=== PATIENT | female | born 1990 | race Caucasian/White ===

== ENCOUNTER 2019-08-14 06:38 | Inpatient (IN) | payer BC ==
[2019-08-14] MEDS ORDERED: Lidocaine 1% 50 ML MDV INJECT ONE (07:28)
[2019-08-14] MEDS ORDERED: Sodium Chloride 0.9% 10 ML Syringe FLUSH PRN (07:28)
[2019-08-14] MEDS ORDERED: Calcium Carbonate 500 MG Tab.Chew PO PRN (07:28)
[2019-08-14] MEDS ORDERED: Nalbuphine 10 MG/ML Syringe IVPUSH PRN (07:28)
[2019-08-14] MEDS ORDERED: Ondansetron 4 MG/2 ML SDV IVPUSH PRN (07:28)
[2019-08-14] MEDS ORDERED: Oxytocin/Lactated Ringers 10 UNIT/1,000 ML BAG IV SCH ×2 (07:30)
[2019-08-14] MEDS ORDERED: ePHEDrine 50 MG/ML SDV IVPUSH PRN (07:34)
[2019-08-14] MEDS ORDERED: fentaNYL 100 MCG/2 ML SDV EPIDUR PRN (07:34)
[2019-08-14] MEDS ORDERED: diphenhydrAMINE 50 MG/ML SDV IVPUSH PRN (07:34)
[2019-08-14] MEDS ORDERED: Bupivacaine/fentaNYL/NS 100 ML Bag EPIDUR PRN (07:34)
--- NOTE | 2019-08-14 09:28 | PCM.LDHP ---
L&D History of Present Illness - General Date of Service: 08/14/19 Admit Problem/Dx: Patient Status Order with Admit Dx/Problem 08/14/19 06:52 Patient Status [ADT] Routine 08/14/19 07:28 Patient Status [ADT] Routine Admission Diagnosis/Problem Admission Diagnosis/Problem Active labor 08/14/19 10:24 Tres a 28-year-old 1 para 0 who was admitted at 40-4/7 weeks gestational age with an BETSY of 08/10/2019 in active labor with progressive cervical dilation to 4 cm, 90% effaced, -3 station, anterior, very soft and cephalic presenting. Source of Information: Patient History Limitations: Reports: No Limitations - History of Present Illness Introduction:: Tres a 28-year-old 1 para 0 who was admitted at 40-4/7 weeks gestational age with an BETSY of 08/10/2019 in active labor with progressive cervical dilation to 4 cm, 90% effaced, -3 station, anterior, very soft and cephalic presenting.Began having labor pains on 08/13/2019. The progress through the night until the end of 08/14/2019. Membranes remained intact upon admission. She is reasonably cochlea. She reports good activity. 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 BETSY is set at 08/10/2019 placing her at 40-4/7 weeks gestational age. BETSY is determined by an early ultrasound done on 2018 and supported by a second ultrasound on 03/27/2019. Patient had menarche at age 13. Cycles every 28 days. Patient had an LMP of 11/11/2018. She denies any STDs or abnormal Pap smears. course. Patient was initially seen for care on 02/08/2019. She had regular care and was a centering patient. Her weight gain was from 136.4 pounds 167.6 pounds for a 31 pound weight gain. Her vital signs remained stable throughout the course. Her fundal height growth was appropriate. Patient is group B strep negative. She declined flu shot. She declined genetic evaluation. Inverted depression screening score on was 3/30. She has a left thyroid nodule. She plans to breast-feed. She would like to try natural childbirth but is okay with an epidural. Laboratory testing and : Blood is A+ with a negative and by screen. Hemoglobin first visit was 13.9 g/dL and platelets were 261,000. She is rubella immune. RPR is nonreactive. Urine culture was negative. Hepatitis B surface antigen and HIV assays were both negative. Chlamydia and gonorrhea assays were both negative. TSH on 02/08/2019 was 3.4-5 mU/L. Second trimester hemoglobin was 11.0 g/dL at which time she was started on ferrous sulfate 325 mg by mouth daily. Platelets at that time were 295,000. Diabetic screen was normal at 90. RPR on 05/15/2019 was nonreactive. Group B strep screen on 2019 was negative. Allergies: Negative. Medications: 1. vitamins 1 daily 2. Ferrous sulfate 325 mg by mouth daily. Past medical history: Unremarkable Past surgical history: Unremarkable Family history: Father with hypertension and high cholesterol history along with heart bypass surgery. Paternal grandmother with history of breast cancer. No other significant family history of cancer noted. No history of anesthesia or bleeding problems, blood clotting problems or related issues. Social history: Patient is . 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 Her is Tommy. She does not use any significant most alcohol, drugs or tobacco. Review of systems: In general patient has no complaints. She is josué and does report good activity. Skin: Negative Lungs: No infectious symptoms or shortness of breath Cardiovascular: No chest pain or exercise intolerance Breasts: Changes associated with .. GI: Negative : Body habitus changes associated with with increased fundal height. Musculoskeletal: Negative Neurological: Negative In general the patient is well-developed, well-nourished, pleasant female of stated age in no acute distress. Last evaluation on 08/08/2019 patient's blood pressure is 119/67. Weight was 167.6. heart rate was 151. Pre weight was 136.4 pounds. Height is 5 feet 4 inches. Prepregnancy body mass index is 22.3. Skin is warm dry without lesions. HEENT, neck and back within normal limits. Lungs are clear with good breath sounds in all lung oliveira. Cardiovascular exam shows regular and rhythm without murmurs. Abdomen is gravid with last fundal height in clinic at 39 cm with baby in vertex presentation.. Genital per her digital exam shows cervix as described above. Extremities and neurological exam are grossly within normal limits. - Related Data Allergies/Adverse Reactions: Allergies Allergy/AdvReac Type Severity Reaction Status Date / Time No Known Allergies Allergy Verified 08/13/19 10:51 Home Medications: Home Meds Mv-Mn/Iron/FA/Herbal/Digestive [ One Tablet] 1 tab PO DAILY 08/13/19 [ History] H&P Review of Systems - Review of Systems: Review Of Systems: See Below L&D Exam - Exam Exam: See Below - Vital Signs Weight: 74.843 kg - Patient Data Lab Results Last 24 hrs: Laboratory Results - last 24 hr 08/14/19 Range/Units 07:55 WBC 11.46 H (3.98-10.04) K/mm3 RBC 4.46 (3.98-5.22) M/mm3 Hgb 13.3 D (11.2-15.7) gm/dl Hct 40.0 (34.1-44.9) % MCV 89.7 (79.4-94.8) fl MCH 29.8 (25.6-32.2) pg MCHC 33.3 (32.2-35.5) g/dl RDW Std Deviation 42.5 (36.4-46.3) fL Plt Count 284 (182-369) K/mm3 MPV 10.3 (9.4-12.3) fl Neut % (Auto) 80.7 H (34.0-71.1) % Lymph % (Auto) 10.9 L (19.3-51.7) % Loup % (Auto) 7.7 (4.7-12.5) % Eos % (Auto) 0.3 L (0.7-5.8) Baso % (Auto) 0.1 (0.1-1.2) % Neut # (Auto) 9.26 H (1.56-6.13) K/mm3 Lymph # (Auto) 1.25 (1.18-3.74) K/mm3 Loup # (Auto) 0.88 H (0.24-0.36) K/mm3 Eos # (Auto) 0.03 L (0.04-0.36) K/mm3 Baso # (Auto) 0.01 (0.01-0.08) K/mm3 Result Diagrams: 08/14/19 07:55 Problem List Initiated/Reviewed/Updated: Yes Orders Last 24hrs: Active Orders 24 hr Category Date Time Status Patient Status [ADT] Routine ADT 08/14/19 07:28 Active Activity as Tolerated [RC] PFP Care 08/14/19 07:28 Active Communication Order [RC] ASDIRECTED Care 08/14/19 07:28 Active Communication Order [RC] ASDIRECTED Care 08/14/19 07:35 Active Cooling Warming Measures [RC] ASDIRECTED Care 08/14/19 07:35 Active Heart Tones [RC] ASDIRECTED Care 08/14/19 07:29 Active Notify Provider [RC] ASDIRECTED Care 08/14/19 07:35 Active Notify Provider [RC] PFP Care 08/14/19 07:28 Active Notify Provider [RC] PRN Care 08/14/19 07:28 Active Oxygen Therapy [RC] ASDIRECTED Care 08/14/19 07:35 Active Peripheral IV Care [RC] . DIRECTED Care 08/14/19 07:29 Active Pulse Oximetry [RC] ASDIRECTED Care 08/14/19 07:35 Active Pump Management, Intrathecal [RC] ASDIRECTED Care 08/14/19 07:29 Active Urinary Catheter Assessment [RC] ASDIRECTED Care 08/14/19 07:28 Active Vital Signs [RC] PER UNIT ROUTINE Care 08/14/19 06:52 Active Regular Diet [DIET] Diet 08/14/19 Breakfast Active BLOOD BANK HOLD SPECIMEN [BBK] Stat Lab 08/14/19 07:55 Received RAPID PLASMA REAGIN,RPR [CHEM] Stat Lab 08/14/19 07:55 Received Bupivacaine/fentaNYL/NS [fentaNYL/Bupivacaine/NS 2 MCG- Med 08/14/19 07:34 Active 0.125% 100 ML] 100 ml EPIDUR CONTINUOUS PRN Calcium Carbonate [Tums] Med 08/14/19 07:28 Active 1,000 mg PO Q2H PRN Lactated Ringers [Ringers, Lactated] 1,000 ml Med 08/14/19 07:30 Active IV ASDIRECTED Ondansetron [Zofran] Med 08/14/19 07:28 Active 4 mg IVPUSH Q4H PRN Oxytocin/Lactated Ringers [Pitocin in LR 10 Units/1,000 Med 08/14/19 07:30 Active ML] 10 unit in 1,000 ml IV .CONTINUOUS Oxytocin/Lactated Ringers [Pitocin in LR 10 Units/1,000 Med 08/14/19 07:30 Active ML] 10 unit in 1,000 ml IV TITRATE Sodium Chloride 0.9% [Saline Flush] Med 08/14/19 07:28 Active 10 ml FLUSH ASDIRECTED PRN diphenhydrAMINE [Benadryl] Med 08/14/19 07:34 Active 25 mg IVPUSH Q6H PRN ePHEDrine [ePHEDrine sulfate] Med 08/14/19 07:34 Active 5 mg IVPUSH ASDIRECTED PRN fentaNYL [Sublimaze] Med 08/14/19 07:34 Active 100 mcg EPIDUR Q3H PRN Electronic Heart Tones Ext w TOCO [WOMSER] Oth 08/14/19 07:28 Ordered Routine Electronic Heart Tones Internal [WOMSER] Per Unit Oth 08/14/19 07:28 Ordered Routine Peripheral IV Insertion Adult [OM.PC] Routine Oth 08/14/19 07:28 Ordered Resuscitation Status Routine Resus Stat 08/14/19 06:52 Ordered Medication Orders Calcium Carbonate/Glycine (Tums) 1,000 mg PO Q2H PRN PRN Reason: Indigestion Diphenhydramine HCl (Benadryl) 25 mg IVPUSH Q6H PRN PRN Reason: Itching Ephedrine Sulfate (Ephedrine Sulfate) 5 mg IVPUSH ASDIRECTED PRN PRN Reason: HYPOTENTSION Fentanyl (Sublimaze) 100 mcg EPIDUR Q3H PRN PRN Reason: Pain Fentanyl/Bupivacaine HCl (Fentanyl/Bupivacaine/Ns 2 Mcg-0.125% 100 Ml) 100 ml EPIDUR CONTINUOUS PRN PRN Reason: Pain Lactated Ringer's (Ringers, Lactated) 1,000 mls @ 100 mls/hr IV ASDIRECTED MJ Oxytocin/Lactated Ringer's (Pitocin In Lr 10 Units/1,000 Ml) 10 unit in 1,000 mls @ 12 mls/hr IV TITRATE MJ; Protocol Oxytocin/Lactated Ringer's (Pitocin In Lr 10 Units/1,000 Ml) 10 unit in 1,000 mls @ 500 mls/hr IV .CONTINUOUS MJ Ondansetron HCl (Zofran) 4 mg IVPUSH Q4H PRN PRN Reason: Nausea/Vomiting Sodium Chloride (Saline Flush) 10 ml FLUSH ASDIRECTED PRN PRN Reason: Keep Vein Open Assessment/Plan Comment:: 1. 40-6/7 week intrauterine , active labor with progressive cervical dilation. 2. Group B strep screen negative 3. Patient plans to breast-feed 4. Patient received her T dap on 06/13/2019. 5. She is rubella immune. 6. Desires natural labor but is okay with epidural. Plan: 1. Anticipate normal spontaneous vaginal delivery 2. RPR and CBC upon admission per protocol 3. Support breast feeding decision 4. Routine labor care 5. If patient desires.
[2019-08-14] MEDS: Lactated Ringers 1,000 ML IV SCH ×2 (10:40→11:46)
[2019-08-14] MEDS: HYDROmorphone 0.5 MG/0.5 ML Syringe IVPUSH PRN ×2 (11:44→12:53)
[2019-08-14] MEDS ORDERED: Lidocaine 1% 50 ML MDV ONE (15:06)
--- NOTE | 2019-08-14 17:14 | PCM.SN ---
- Free Text/Narrative Note: Delivery note: Tres a 28-year-old 1 para 0 who was admitted at 40-4/7 weeks gestational age with an BETSY of 08/10/2019 in active labor with progressive cervical dilation to 4 cm, 90% effaced, -3 station, anterior, very soft and cephalic presenting.Began having labor pains on 08/13/2019. The progress through the night until the end of 08/14/2019. Membranes remained intact upon admission. She progressed steadily until proxy 1300 hrs. at which time she was completely dilated she began pushing and 12 hours pushed the baby down to +3 station. Patient becoming somewhat fatigued and was offered the options of continued pushing, vacuum extraction delivery or section. She opted for the vacuum extraction delivery in this is undertaken. The procedure, risks, benefits , limitations, alternatives of care and follow-up were discussed with patient. She appeared to understand and gave verbal consent per protocol. Vacuum extractor was applied and with one contraction the baby delivered without concerns. There was a second-degree perineal laceration that occurred. Baby was delivered completely at 1516 hrs. on 08/14/2019. After delivery of the baby was placed on mom's abdomen. Baby was dried, nose and mouth were bulb suctioned. Cord was allowed to pulsate for approximately 2-3 minutes at which time was then clamped 2 and then cut by the baby's father Tommy. Her blood was obtained. It should be noted the patient received Pitocin through the IV at a rate of 500 mL an hour per protocol to facilitate increase in uterine tone and decreased likelihood of bleeding. The baby weighed 3460 g (7 lbs. 10 oz.), was 19.5 inches in length and had Apgars of 8 and 9. The placenta delivered in a Cadena presentation, appeared intact and complete and was discarded patient desire. The umbilical cord had 3 vessels Second-degree laceration was repaired with 3-0 Monocryl in a routine fashion using lidocaine 1%approximately 15 mL total-for anesthetic. Routine repair was undertaken. Patient tolerated this well. Estimated blood loss was approximately 100 mL. Patient plans to breast-feed. Condition: Good.
[2019-08-14] MEDS ORDERED: Benzocaine/Menthol 20%-0.5% Spray 56 GM Canister TOP PRN (18:19)
[2019-08-14] MEDS ORDERED: Docusate Sodium 100 MG Cap PO PRN (18:19)
[2019-08-14] MEDS ORDERED: Ibuprofen 600 MG Tab PO PRN (18:19)
[2019-08-14] MEDS ORDERED: Witch Hazel Medicated Pads 40/Jar TOP PRN (18:19)
[2019-08-14] MEDS ORDERED: Acetaminophen 325 MG Tab PO PRN (18:19)
[2019-08-15] MEDS ORDERED: Ferrous Sulfate 324 MG Tab.EC PO SCH (07:00)
[2019-08-15] MEDS ORDERED: Prenatal Multivitamin with Calcium/Folic Acid/Iron Tab PO SCH (09:00)
--- NOTE | 2019-08-15 17:25 | PCM.DCSUM1 ---
Discharge Summary - Hospital Course Free Text/Narrative:: Tres a 28-year-old 1 para 0 who was admitted at 40-4/7 weeks gestational age with an BETSY of 08/10/2019 in active labor with progressive cervical dilation to 4 cm, 90% effaced, -3 station, anterior, very soft and cephalic presenting.Began having labor pains on 08/13/2019. The progress through the night until the end of 08/14/2019. Membranes remained intact upon admission. She progressed steadily until proxy 1300 hrs. at which time she was completely dilated she began pushing and 12 hours pushed the baby down to +3 station. Patient becoming somewhat fatigued and was offered the options of continued pushing, vacuum extraction delivery or section. She opted for the vacuum extraction delivery in this is undertaken. The procedure, risks, benefits , limitations, alternatives of care and follow-up were discussed with patient. She appeared to understand and gave verbal consent per protocol. Vacuum extractor was applied and with one contraction the baby delivered without concerns. There was a second-degree perineal laceration that occurred. Baby was delivered completely at 1516 hrs. on 08/14/2019. After delivery of the baby was placed on mom's abdomen. Baby was dried, nose and mouth were bulb suctioned. Cord was allowed to pulsate for approximately 2-3 minutes at which time was then clamped 2 and then cut by the baby's father Tommy. Her blood was obtained. It should be noted the patient received Pitocin through the IV at a rate of 500 mL an hour per protocol to facilitate increase in uterine tone and decreased likelihood of bleeding. The baby weighed 3460 g (7 lbs. 10 oz.), was 19.5 inches in length and had Apgars of 8 and 9. The placenta delivered in a Cadena presentation, appeared intact and complete and was discarded patient desire. The umbilical cord had 3 vessels Second-degree laceration was repaired with 3-0 Monocryl in a routine fashion using lidocaine 1%approximately 15 mL total-for anesthetic. Routine repair was undertaken. Patient tolerated this well. Estimated blood loss was approximately 100 mL. Patient plans to breast-feed. Patient has done well . She is made good bowel, bladder and ambulatory activity. She has minimal lochia and is nursing well. She is ready for discharge home. Condition: Good. Diagnosis: Stroke: No - Discharge Data Discharge Date: 08/15/19 Discharge Disposition: Home, Self-Care 01 Condition: Good - Referral to Home Health Primary Care Physician: Tacos Bowman MD - Patient Instructions Diet: Usual Diet as Tolerated, Regular Diet as Tolerated (Nursing diet with increase calories and calcium is recommended) Activity: As Tolerated (No intercourse or tampons until bleeding resolves), No Lifting Over 20 Pounds Driving: May Drive Today Showering/Bathing: May Shower (May take a bath) Notify Provider of: Fever, Increased Pain, Swelling and Redness, Nausea and/or Vomiting - Discharge Plan Home Medications: Home Meds Ferrous Sulfate [Iron] 325 mg PO DAILY 08/14/19 [History] No122/Iron/Folic Acid [ Multi Tablet] 1 each PO DAILY 08/14/19 [History] Acetaminophen [Tylenol] 650 mg PO Q4H PRN tablet 08/15/19 [Rx] Ibuprofen [Motrin] 600 mg PO Q4H PRN tablet 08/15/19 [Rx] Patient Handouts: and Mastitis, Tips for a Good Latch, [id number], Care After Vaginal Delivery Referrals: Tacos Bowman MD [Primary Care Provider] - 08/29/19 (Follow up in 2 weeks, call to schedule.) - Discharge Summary/Plan Comment DC Time >30 min.: No Discharge Summary/Plan Comment: Discharge instructions: 1. Discharge home 2. Diet, activity and follow-up discussed with patient. Recommend nursing diet with increased calories and calcium. 3. Precautions given concern increased pain, bleeding, temperature, signs/ symptoms of DVT/PE. 4. Medications per home medication was printed, discussed with and given to the patient. 5. Return to clinic-Dr. Bowman or Amrita lynch, nurse practitioner-[facility] in 2 weeks. Diagnosis: Term -delivered Condition: Good - Patient Data Vitals - Most Recent: Last Vital Signs Temp 36.9 C 08/15/19 16:00 Pulse 107 H 08/15/19 16:00 Resp 18 08/15/19 16:00 BP 119/72 08/15/19 16:00 Pulse Ox 95 08/15/19 16:00 Weight - Most Recent: 74.843 kg I&O - Last 24 hours: Intake & Output 08/15/19 08/15/19 08/15/19 06:59 14:59 22:59 Intake Total 120 Balance 120 Lab Results - Last 24 hrs: Laboratory Results - last 24 hr 08/14/19 Range/Units 07:55 RPR Non-reactive (NONREACTIVE) Med Orders - Current: Current Medications Acetaminophen (Tylenol) 650 mg PO Q4H PRN PRN Reason: mild pain or fever Benzocaine/Menthol (Dermoplast Pain Relief [place]) 0 gm TOP ASDIRECTED PRN PRN Reason: Perineal Comfort Measure Last Admin: 08/14/19 20:42 Dose: 1 canister Docusate Sodium (Colace) 100 mg PO BID PRN PRN Reason: Constipation Ferrous Sulfate (Ferrous Sulfate) 324 mg PO WITHBREAKFAST [facility] Last Admin: 08/15/19 07:57 Dose: 324 mg Ibuprofen (Motrin) 600 mg PO Q4H PRN PRN Reason: Mild pain or fever Prenat Multivit/Fajardo/Iron/Folic Ac ( Plus Iron) 1 each PO DAILY [facility] Last Admin: 08/15/19 09:31 Dose: 1 each Witch Jami (Tucks) 1 pad TOP ASDIRECTED PRN PRN Reason: Pain Last Admin: 08/14/19 20:43 Dose: 1 tub Discontinued Medications Calcium Carbonate/Glycine (Tums) 1,000 mg PO Q2H PRN PRN Reason: Indigestion Diphenhydramine HCl (Benadryl) 25 mg IVPUSH Q6H PRN PRN Reason: Itching Ephedrine Sulfate (Ephedrine Sulfate) 5 mg IVPUSH ASDIRECTED PRN PRN Reason: HYPOTENTSION Fentanyl (Sublimaze) 100 mcg EPIDUR Q3H PRN PRN Reason: Pain Fentanyl/Bupivacaine HCl (Fentanyl/Bupivacaine/Ns 2 Mcg-0.125% 100 Ml) 100 ml EPIDUR CONTINUOUS PRN PRN Reason: Pain Hydromorphone HCl (Dilaudid) 0.5 mg IVPUSH Q1H PRN PRN Reason: Pain Last Admin: 08/14/19 12:53 Dose: 0.5 mg Lactated Ringer's (Ringers, Lactated) 1,000 mls @ 100 mls/hr IV ASDIRECTED [facility] Last Admin: 08/14/19 11:46 Dose: 100 mls/hr Oxytocin/Lactated Ringer's (Pitocin In Lr 10 Units/1,000 Ml) 10 unit in 1,000 mls @ 12 mls/hr IV TITRATE MJ; Protocol Oxytocin/Lactated Ringer's (Pitocin In Lr 10 Units/1,000 Ml) 10 unit in 1,000 mls @ 500 mls/hr IV .CONTINUOUS MJ Last Admin: 08/14/19 15:18 Dose: 500 mls/hr Lidocaine HCl (Xylocaine 1%) 20 ml INJECT ONETIME ONE Stop: 08/14/19 07:29 Last Admin: 08/14/19 15:24 Dose: 10 ml Lidocaine HCl (Xylocaine 1%) Confirm Administered Dose 50 ml .ROUTE .STK-MED ONE Stop: 08/14/19 15:07 Last Admin: 08/14/19 19:27 Dose: Not Given Nalbuphine HCl (Nubain) 10 mg IVPUSH Q2H PRN PRN Reason: Pain Ondansetron HCl (Zofran) 4 mg IVPUSH Q4H PRN PRN Reason: Nausea/Vomiting Sodium Chloride (Saline Flush) 10 ml FLUSH ASDIRECTED PRN PRN Reason: Keep Vein Open
== END 2019-08-15 17:00 | disposition home or self-care (01) | DRG 560 ==
LOC: JD.OBCHECK 06:38 → JD.OB 06:43 → JD.OBCHECK 07:28 → OBSVTOIN 15:16 → JD.OB 15:33
PROVIDERS: ADMIT Obstetrics & Gynecology; ATTEND Obstetrics & Gynecology
PROC: 10D07Z6 Extraction of Products of Conception, Vacuum, Via Natural or Artificial Opening (ICD-10-PCS; principal; 2019-08-14)
PROC: 10907ZC Drainage of Amniotic Fluid, Therapeutic from Products of Conception, Via Natural or Artificial Opening (ICD-10-PCS; 2019-08-14)
PROC: 0KQM0ZZ Repair Perineum Muscle, Open Approach (ICD-10-PCS; 2019-08-14)
DX: O70.1 Second degree perineal laceration during delivery (principal); Z37.0 Single live birth; Z3A.40 40 weeks gestation of pregnancy
CPT/HCPCS: 36415; 51701; 59025; 59409; 85025; 86592; A9270-GY; J1170; J2001; J2590; J7120

== ENCOUNTER 2023-06-20 23:51 | Inpatient (IN) | payer BC ==
[2023-06-21] MEDS ORDERED: Nalbuphine HCl 10 MG/ 1ML Amp IVPUSH PRN
[2023-06-21] MEDS ORDERED: Ondansetron 4 MG/2 ML SDV IVPUSH PRN
[2023-06-21] MEDS ORDERED: Lidocaine 1% 50 ML MDV INJECT PRN
[2023-06-21] MEDS ORDERED: Lidocaine 1% 10 ML MDV ONE
[2023-06-21] MEDS ORDERED: Sodium Chloride 0.9% 10 ML Syringe FLUSH PRN
[2023-06-21 00:16] LABS: BASOPHILS PERCENT AUTO 0.3 % (0.0-1.0); EOSINOPHILS PERCENT AUTO 0.2 % (0.0-6.0); HEMATOCRIT 38.6 % (37.0-47.0); HEMOGLOBIN 13.3 gm/dl (12.0-16.0); IMMATURE GRAN ABSOLUTE AUTO 0.04 K/mm3 (0.00-0.05); IMMATURE GRAN PERCENT AUTO 0.4 % (0.0-0.4); LYMPHOCYTES ABSOLUTE AUTO 1.5 K/mm3 (1.0-4.8); LYMPHOCYTES PERCENT AUTO 13.2 % (24.0-44.0); MEAN CORPUSCULAR HEMOGLOBIN 30.8 pg (28.0-32.0); MEAN CORPUSCULAR HGB CONC 34.5 g/dl (32.0-36.0); MEAN CORPUSCULAR VOLUME 89.4 fl (83.0-99.0); MEAN PLATELET VOLUME 9.8 fl (9.4-12.3); MONOCYTES ABSOLUTE AUTO 1.1 K/mm3 (0.0-0.8); MONOCYTES PERCENT AUTO 9.8 % (0.0-8.0); NEUTROPHILS ABSOLUTE AUTO 8.6 K/mm3 (1.8-7.7); NEUTROPHILS PERCENT AUTO 76.1 % (41.0-71.0); PLATELET COUNT,PLT 219 K/mm3 (150-400); RED BLOOD CELL COUNT 4.32 M/mm3 (4.10-5.30); WHITE BLOOD CELL COUNT,WBC 11.27 K/mm3 (3.9-11.3)
[2023-06-21] MEDS ORDERED: Oxytocin/Lactated Ringers 30 UNIT/500 ML BAG IV SCH ×2 (01:30→06:30)
[2023-06-21] MEDS: Lactated Ringers 1,000 ML IV SCH ×2 (02:03→06:17)
[2023-06-21] MEDS ORDERED: ePHEDrine 50 MG/ML SDV IVPUSH PRN (03:56)
[2023-06-21] MEDS ORDERED: Bupivacaine/fentaNYL/NS 100 ML Bag EPIDUR PRN (03:56)
[2023-06-21] MEDS ORDERED: diphenhydrAMINE 50 MG/ML SDV IVPUSH PRN (03:56)
[2023-06-21] MEDS ORDERED: fentaNYL 100 MCG/2 ML SDV EPIDUR PRN (03:56)
[2023-06-21] MEDS ORDERED: Sodium Chloride 0.9% 10 ML Syringe FLUSH SCH (09:00)
[2023-06-21] MEDS ORDERED: Benzocaine/Menthol 20%-0.5% Spray 78 GM Cannister TOP PRN (09:33)
[2023-06-21] MEDS ORDERED: Acetaminophen 325 MG Tab PO PRN (09:33)
[2023-06-21] MEDS ORDERED: Witch Hazel Medicated Pads 40/Jar TOP PRN (09:33)
[2023-06-21] MEDS ORDERED: Ibuprofen 600 MG Tab PO PRN (09:33)
[2023-06-21] MEDS ORDERED: Docusate Sodium 100 MG Cap PO PRN (09:33)
== END 2023-06-22 08:05 | disposition home or self-care (01) | DRG 560 ==
LOC: JD.OBCHECK 23:51 → JD.OB 23:55 → JD.OBCHECK 06-21 00:01 → JD.OB 06-21 00:02 → OBSVTOIN 06-21 07:32 → JD.OB 06-21 07:33
PROVIDERS: ADMIT Obstetrics & Gynecology; ATTEND Obstetrics & Gynecology
PROC: 10E0XZZ Delivery of Products of Conception, External Approach (ICD-10-PCS; principal; 2023-06-21)
PROC: 3E0R3BZ Introduction of Anesthetic Agent into Spinal Canal, Percutaneous Approach (ICD-10-PCS; 2023-06-21)
PROC: 00HU33Z Insertion of Infusion Device into Spinal Canal, Percutaneous Approach (ICD-10-PCS; 2023-06-21)
PROC: 0HQ9XZZ Repair Perineum Skin, External Approach (ICD-10-PCS; 2023-06-21)
DX: O42.02 Full-term premature rupture of membranes, onset of labor within 24 hours of rupture (principal); O66.0 Obstructed labor due to shoulder dystocia; O48.0 Post-term pregnancy; Z37.0 Single live birth; Z3A.40 40 weeks gestation of pregnancy; O70.0 First degree perineal laceration during delivery; O69.81X0 Labor and delivery complicated by cord around neck, without compression, not applicable or unspecified
CPT/HCPCS: 36415; 51701; 59025; 59409; 85025; 86592; C1758; J2300; J3010; J3490; J7120; J7999